=== PATIENT | male | born 1975 | race Caucasian/White ===

== ENCOUNTER 2020-10-08 14:52 | Emergency (ER) | payer OTHER ==
[~2020-10-08] VITALS: Ht 170.1 cm; Wt 122.7 kg
[2020-10-08] MEDS ORDERED: KETOROLAC 60 MG/2 ML VIAL IM ONE (15:15)
[2020-10-08] MEDS ORDERED: ORPHENADRINE 60 MG/2 ML (NORFLEX) AMP (ED ONLY) IM ONE (15:15)
--- NOTE | 2020-10-08 15:15 | ED General ---
General Chief Complaint: General Problems/Pain Stated Complaint: SHOULDER PAIN Source of Information: Patient Exam Limitations: No Limitations History of Present Illness Date Seen by Provider: October 08, 2020 Time Seen by Provider: 15:13 Initial Comments To ER with left shoulder pain that began about 30 minutes ago while he was wrestling with his nephew. He felt some tightness in the anterior posterior shoulder and to the superior aspect radiating up into his neck. No tingling down the arm. He also became very winded during this exertion and had some palpitations. He has been evaluated recently for some ongoing palpitations and dyspnea on exertion. He had a negative cardiac stress test 2 months ago he states. He follows with primary care Jeaneth. He did have Covid in April and relates his dyspnea on exertion and palpitations to recovering from Covid. Timing/Duration: 1/2 Hour Severity: Moderate Allergies and Home Medications Allergies Coded Allergies: topiramate (Verified Allergy, Unknown, 10/08/20) Patient Home Medication List Home Medication List Reviewed: Yes Review of Systems Review of Systems Constitutional: see HPI EENTM: see HPI Respiratory: no symptoms reported Cardiovascular: no symptoms reported Musculoskeletal: see HPI Skin: no symptoms reported Psychiatric/Neurological: No Symptoms Reported Hematologic/Lymphatic: No Symptoms Reported Past [id number] Hx Patient Social History Alcohol Use: Denies Use Smoking Status: Never a Smoker Physical Exam Vital Signs Vital Signs - First Documented 10/08/20 14:57 Pulse 82 Resp 18 B/P (MAP) 166/85 (112) Pulse Ox 97 O2 Delivery Room Air Capillary Refill : Height, Weight, BMI Height: '" Weight: lbs. oz. kg; BMI Method: General Appearance: No Apparent Distress, WD/WN, Other (Alert and oriented. No distress. Very pleasant. Certainly seems to be musculoskeletal in nature given that this pain and tightness in the shoulder started while he was wrestling with his nephew. I am reassured by his report of a normal chemical stress test 2 months ago. If the Toradol and Norflex fail to improve his symptoms we will do a little more in-depth work-up. Patient's is also present here in the emergency room being evaluated for unrelated complaint.) Eyes: Bilateral Eye Normal Inspection, Bilateral Eye PERRL, Bilateral Eye EOMI Neck: Full Range of Motion, Normal Inspection Respiratory: Normal Breath Sounds, No Accessory Muscle Use, No Respiratory Distress Cardiovascular: Regular Rate, Rhythm, Normal Peripheral Pulses Gastrointestinal: Normal Bowel Sounds, Non Tender, Soft Extremity: Normal Capillary Refill, Normal Inspection Neurologic/Psychiatric: Alert, Oriented x3 Skin: Normal Color, Warm/Dry Progress/Results/Core Measures Suspected Sepsis SIRS Temperature: Pulse: Respiratory Rate: Blood Pressure / Mean: Results/Orders My Orders Orders - JARROD GHOSH APRN Ketorolac Injection (Toradol Injection) (10/08/20 15:15) Orphenadrine Inj (Ed Only) (Norflex Inje (10/08/20 15:15) Medications Given in ED Current Medications Medications Dose Ordered Sig/Mary Route Start Time Stop Time Status Last Admin Dose Admin Ketorolac Tromethamine 60 mg ONCE ONCE IM 10/08/20 15:15 10/08/20 15:16 DC 10/08/20 15:36 60 MG Orphenadrine Citrate 60 mg ONCE ONCE IM 10/08/20 15:15 10/08/20 15:16 DC 10/08/20 15:36 60 MG Vital Signs/I&O 10/08/20 14:57 Pulse 82 Resp 18 B/P (MAP) 166/85 (112) Pulse Ox 97 O2 Delivery Room Air Capillary Refill : Departure Impression Primary Impression: Left shoulder strain Disposition: 01 HOME, SELF-CARE Condition: Stable Departure-Patient Inst. Decision time for Depature: 16:36 Patient Instructions: Muscle Strain (DC) Add. Discharge Instructions: Follow-up with your doctor next week. Return to ER for any concerns. All discharge instructions reviewed with patient and/or family. Voiced understanding. JARROD GHOSH APRN October 08, 2020 15:15
[2020-10-08 16:50] VITALS: BP 132/66
== END 2020-10-08 16:50 | disposition home or self-care (01) ==
LOC: ER 14:55
DX: S46.912A Strain of unspecified muscle, fascia and tendon at shoulder and upper arm level, left arm, initial encounter (principal); Z88.8 Allergy status to other drugs, medicaments and biological substances; Y93.72 Activity, wrestling
CPT/HCPCS: 99284